=== PATIENT | female | born 1985 | race Caucasian/White ===

== ENCOUNTER 2016-06-03 03:19 | Emergency (ER) | payer OTHER ==
[~2016-06-03] VITALS: Ht 162.6 cm; Wt 65.5 kg
[~2016-06-03 03:19] MED LIST: Docusate Sodium PO; Hydrocodone/Acetaminophen PO; Ibuprofen PO; PREN1TAB80 PO; albuterol inhaler
[2016-06-03 03:21] VITALS: BP 123/84; PULSE 78; RESP 16; O2SAT 100
[2016-06-03 04:14] LABS: BASOPHILS % (AUTO) 0.3 % (0-3); EOSINOPHILS % (AUTO) 0.1 % (0-5); MONOCYTES % (AUTO) 2.3 % (4-12); Mean Corpuscular Hemoglobin 29.3 pg (27.0-35.0); Mean Corpuscular Volume 87.6 fL (81-100); NEUTROPHILS % (AUTO) 88.8 % (40-74); Platelet Count 321 bil/L (150-400)
--- NOTE | 2016-06-03 04:22 | ED.REPORT ---
HPI-Abd Pain F Under 39 Date of Service Jun 03, 2016 ED Provider: Juaquin Arboleda MD Pt is a 30 y.o. female who presents to the ED c/o intermittent sharp abdominal pain onset 1600 yesterday. Pt reports associated nausea. She denies vomiting and diarrhea. She also denies a hx of gallstones and diverticulitis. Pt states that she has an IUD. Nursing Notes Stated Complaint: ABDOMINAL PAIN Chief Complaint: Female Abdominal Pain Nursing Notes Reviewed: Yes Allergies: Coded Allergies: No Known Allergies (Unverified Allergy, Unknown, 02/11/14) Scheduled ([Docusate Sodium]) 100 MG CAPSULE 100 MG PO BID Vits W-Ca,Fe,FA(<1Mg) ( Vitamins) 1 Each Tablet 1 EACH PO DAILY Scheduled PRN ([albuterol inhaler]) PRN PRN PRN For Wheezing ([Hydrocodone/Acetaminophen]) 1 TAB TABLET 1-2 TAB PO Q4H PRN PRN For Pain ([Ibuprofen]) 800 MG TABLET 800 MG PO Q6H PRN PRN For Pain General Time Seen by MD: 04:07 Chief Complaint Abdominal pain Hx Obtained From: Patient Arrived By: Walk-in Sudden in Onset?: Yes Onset Occurred: 9 - 12 hours ago Symptom Duration: Since onset Progression since Onset: Intermittent Location: : Diffuse Quality: Painful, Sharp Severity: Current: No pain currently Severity: Maximum: Severe Recent Healthcare: No recent doctor visit, No recent hospitalization Similar Sx Previous: No Past Medical History Past Medical History Reports: Asthma Past Surgical History None reported Ambulatory Status Independent Review of Systems GI: Reports: Abdominal pain, Nausea, Denies: Diarrhea, Vomiting Complete sys rev & neg: except as marked. Physical Exam Initial Vital Signs Vital Signs (First) Date Time Temp Pulse Resp B/P Pulse Ox O2 Delivery O2 Flow Rate FiO2 06/03/16 03:21 36.7 78 16 123/84 100 Room Air Initial VS: Reviewed, Vital signs normal Head / Eyes: Atraumatic, Normocephalic Extremities: Vascular intact, Neuro intact Skin: Warm, Dry, No cyanosis Neurologic: Alert, Oriented, Nonfocal Psychiatric: Mood/affect normal, Behavior normal, Normal thought content General/Constitutional: Awake, Alert, No acute distress, Well appearing, Well developed, Well hydrated, Well nourished, Not toxic appearing Respiratory / Chest: Atraumatic, Breath sounds NL, Breath sounds = bilat, No respiratory distress, No rales, No rhonchi, No wheezing, No retractions, No stridor Cardiovascular: Heart rate NL, Regular rhythm, Heart sounds NL, No gallop, No murmurs, No rubs, Peripheral circulation NL Abdomen: Atraumatic, Soft, No guarding, No rebound, No distention Tenderness/Guarding/Rebound: Positive: Tender RUQ..., Tender diffuse Back: Atraumatic Interpretation & Diagnostics Lab Results Interpretation Result Diagram: 06/03/16 0405 06/03/16 0405 Test 06/03/16 03:41 06/03/16 04:05 Hold Urine Received (Received) White Blood Count 11.4th/mm3 (3.8-10.1) Red Blood Count 4.26mil/mm3 (3.90-5.20) Hemoglobin 12.5g/dL (12.0-15.6) Hematocrit 37.3% (35.0-46.0) Mean Corpuscular Volume 87.6fL (81-100) Mean Corpuscular Hemoglobin 29.3pg (27.0-35.0) Mean Corpuscular Hemoglobin Concent 33.5% (32.0-37.0) Red Cell Distribution Width 13.2% (12.3-15.4) Platelet Count 321bil/L (150-400) Neutrophils (%) (Auto) 88.8% (40-74) Lymphocytes (%) (Auto) 8.3% (14-46) Monocytes (%) (Auto) 2.3% (4-12) Eosinophils (%) (Auto) 0.1% (0-5) Basophils (%) (Auto) 0.3% (0-3) Sodium Level 136mEq/L (134-144) Potassium Level 4.3mEq/L (3.5-5.2) Chloride Level 101mEq/L (97-108) Carbon Dioxide Level 24mmol/L (18-29) Blood Urea Nitrogen 14mg/dL (6-20) Creatinine 0.63mg/dL (0.57-1.00) Estimat Glomerular Filtration Rate 158mL/min (>59) Glucose Level 124mg/dL (60-99) Calcium Level 9.5mg/dL (8.5-10.1) Magnesium Level 2.1mg/dL (1.6-2.6) Total Bilirubin 0.4mg/dL (0.0-1.2) Aspartate Amino Transf (AST/SGOT) 15U/L (0-50) Alanine Aminotransferase (ALT/SGPT) 7U/L (0-32) Alkaline Phosphatase 42U/L (25-150) Total Protein 7.6g/dL (6.4-8.4) Albumin 4.6g/dL (3.4-5.0) Lipase 20U/L (13-60) Hold Chaidez Top Tube Received (Received) Lab Results Interpretation: Elevation white blood count. No other abnormalities noted Re-Eval/Medical Decision Med Decision/Clinical Course 30-year-old female who had right upper quadrant abdominal pain. She has no known history of gallstones. There was a mild elevation of her white blood count but no transaminases or lipase elevation. She had some persistent right upper quadrant pain with a positive Rosenthal's sign. Her care is being transferred at change of shift to Dr. Raciel Wilcox for ultrasound. Discharge & Departure Disposition: Home Discharge Condition All VS Reviewed: Yes Condition: Stable Referrals: Tyrone Hernandez MD (PCP) Scribe Attestation Portions of this note were transcribed by Maine Rascon. I, Dr. Arboleda personally performed the history, physical exam and medical decision-making; I reviewed and confirmed the accuracy of the information in the transcribed note. Signed by: Andres Manjarrez, 06/03/16 and 0000. copies to: Tyrone Hernandez MD, Howard L MD Jun 03, 2016 04:22 MAINE RASCON Jun 03, 2016 04:32
[2016-06-03] MEDS ORDERED: 0.9% Sodium Chloride 1,000 ML IV ONE (04:32)
[2016-06-03] MEDS ORDERED: Ondansetron 2 mg/mL 2 mL Inj IVPUSH PRN (04:35)
[2016-06-03 04:38] LABS: Magnesium 2.1 mg/dL (1.6-2.6)
[2016-06-03 06:24] VITALS: BP 126/82; PULSE 72; RESP 16; O2SAT 99
[2016-06-03] MEDS ORDERED: CIPR-198 PO (08:46)
[2016-06-03 09:00] VITALS: BP 104/71; PULSE 71; RESP 14; O2SAT 100
--- NOTE | 2016-06-03 10:04 | DRSVH ---
PROCEDURE: US ABDOMEN INDICATIONS: RUQ US TECHNIQUE: Real-time scanning was performed of the abdominal and retroperitoneal organs, with image documentatio n. COMPARISON: None. FINDINGS: Liver length: 14.99 cm Gallbladder Wall Thickness: 2.20 mm CHD: 1.60 mm CBD: 2.50 mm Spleen length: 10.71 cm Right kidney length: 11.12 cm Left kidney length: 12.13 cm Aorta(Proximal): 1.95 cm Aorta(Mid): 1.70 cm Aorta(Distal): 1.54 cm RCIA: 1.11 cm LCIA: 1.09 cm Liver: Liver is normal in size and homogeneous in echotexture. Gallbladder: Normal gallbladder. Biliary ducts: Intrahepatic bile ducts are non-dilated. Extrahepatic bile duct caliber is normal. Normal is 6-7 mm or less in diameter, or 10 mm or less post-cholecystectomy. Pancreas: Visualized portions of the pancreas are sonographically normal. Spleen: Spleen is normal in size and homogeneous in echotexture. Kidneys: Kidneys are normal in size and echotexture. No hydronephrosis or nephrolithiasis. No blane d masses. 12 mm superior pole right renal simple cyst. Aorta: Visualized aorta is normal in caliber at less than 3 cm. Iliacs: Proximal common iliac arteries are normal in caliber at less than 2.5 cm. IVC: Intrahepatic inferior vena cava is patent. Miscellaneous: Trace free fluid adjacent to the right kidney. IMPRESSION: 1. Trace free fluid adjacent to the right kidney and simple 12 mm right renal cyst present. Dictated by: Edilberto Rodriguez [facility] Interpreted: Elin Ferrera MD on 06/03/2016 at 10:03 Transcribed by: TYLER on 06/03/2016 at 10:04 Approved by: Elin Ferrera MD, PhD on 06/03/2016 at 17:25
[2016-06-03 16:54] LABS: APPEARANCE,URINE TURBID (CLEAR,HAZY); COLOR,URINE YELLOW (YELLOW); OCCULT BLOOD,URINE NEGATIVE (NEGATIVE); UROBILINOGEN,URINE NORMAL (NORMAL)
== END 2016-06-03 09:00 | disposition home or self-care (01) ==
LOC: SED 03:19
DX: N39.0 Urinary tract infection, site not specified (principal); R10.13 Epigastric pain; R11.0 Nausea; D72.829 Elevated white blood cell count, unspecified; J45.909 Unspecified asthma, uncomplicated; Z97.5 Presence of (intrauterine) contraceptive device
CPT/HCPCS: 36415; 76700; 80053; 81000; 81025; 83690; 83735; 85025; 87086; 87088; 96361; 96374; 96375; 99285; J2405; J7030